=== PATIENT | female | born 1945 | race Caucasian/White ===

== ENCOUNTER 2022-05-01 06:59 | Day surgery (SDC) | payer MEDICARE, MEDICAID ==
[~2022-05-01] VITALS: Ht 154.9 cm; Wt 71.2 kg
[2022-05-01] MEDS ORDERED: BUPIVACAINE /PF 0.5% 30 ML VIAL ONE (13:00)
[2022-05-01] MEDS ORDERED: PROPOFOL 200MG/ 20ML VIAL (DIPRIVAN) IV ONE (13:00)
[2022-05-01] MEDS ORDERED: LABETALOL 100 MG/ 20ML VIAL ONE (13:00)
[2022-05-01] MEDS ORDERED: hydrALAZINE HCL 20 MG/ML VIAL ONE (13:00)
[2022-05-01] MEDS ORDERED: [UNRECOGNIZED DRUG - OTHER] ONE (13:00)
[2022-05-01] MEDS ORDERED: ROCURONIUM BROMIDE 10 MG/ML (ZEMURON) ONE (13:00)
[2022-05-01] MEDS ORDERED: DEXAMETHASONE SOD PHOSPHATE 4 MG/ML VIAL ONE (13:00)
[2022-05-01] MEDS ORDERED: NS 1000 ML IV.SOLN IV ONE (13:00)
[2022-05-01] MEDS ORDERED: MIDAZOLAM HCL 5 MG/5 ML VIAL ONE (13:00)
[2022-05-01] MEDS ORDERED: ONDANSETRON HCL 4 MG/2 ML VIAL ONE (13:00)
[2022-05-01] MEDS ORDERED: SEVOFLURANE 15 MIN GAS INH ONE (13:00)
[2022-05-01] MEDS ORDERED: SUGAMMADEX SODIUM 200 MG/2 ML VIAL IV ONE (13:00)
[2022-05-01] MEDS ORDERED: fentaNYL CITRATE/PF 100 MCG/2 ML AMP ONE (13:00)
[2022-05-01] MEDS ORDERED: ACETAMINOPHEN I.V. 1000 MG 100 ML IV ONE (13:36)
[2022-05-01] MEDS ORDERED: LABETALOL 100 MG/ 20ML VIAL IVP PRN (13:45)
[2022-05-01] MEDS ORDERED: hydrALAZINE HCL 20 MG/ML VIAL IVP PRN (13:45)
[2022-05-01] MEDS ORDERED: METOCLOPRAMIDE HCL 10 MG/2 ML VIAL IVP PRN (13:45)
[2022-05-01] MEDS ORDERED: MEPERIDINE HCL/PF 25 MG/ML DISP.SYRIN IVP PRN (13:45)
[2022-05-01] MEDS ORDERED: NACL 0.9% 1,000 ML IV SCH (13:45)
[2022-05-01] MEDS ORDERED: HYDROmorphone 1 MG/ML INJ. CARTRIDGE IVP PRN ×2 (13:45)
[2022-05-01] MEDS ORDERED: HYDROmorphone 1 MG/ML INJ. CARTRIDGE ONE (14:20)
[2022-05-01 15:35] VITALS: BP_SYST 138
[2022-05-01] MEDS ORDERED: METOCLOPRAMIDE HCL 10 MG/2 ML VIAL ONE (16:18)
== END 2022-05-01 18:13 | disposition home or self-care (01) ==
LOC: SDS 06:59 → SMU 07:01 → SDS 18:13
PROVIDERS: ATTEND Surgery
DX: K80.10 Calculus of gallbladder with chronic cholecystitis without obstruction (principal); I10 Essential (primary) hypertension; J45.909 Unspecified asthma, uncomplicated; K21.9 Gastro-esophageal reflux disease without esophagitis; F32.9 Major depressive disorder, single episode, unspecified; E11.9 Type 2 diabetes mellitus without complications; M19.90 Unspecified osteoarthritis, unspecified site; Z90.710 Acquired absence of both cervix and uterus; Z79.899 Other long term (current) drug therapy; Z20.822 Contact with and (suspected) exposure to COVID-19
CPT/HCPCS: 36415; 47562; 82962; 88304; U0003; J3490 ×3; J1100; J0360; J2765; J2250; J2405; J2704; J3010; J1170; J7030; J0131; C1727